=== PATIENT | male | born 1975 | race Two or more races ===

== ENCOUNTER 2025-02-17 08:35 | Day surgery (SDC) | payer MEDICAID, SELFPAY ==
[2025-02-16 15:06] VITALS: BMI 28.8
[2025-02-17] VITALS (12 sets, daily range): BP systolic 111–170; BP diastolic 78–104; PULSE 58–71; RESP 12–18; TEMP 36.3–36.4; O2SAT 94–100; BMI 28.9
[2025-02-17] MEDS: DiphenhydrAMINE INJ 50 MG/ML VIAL 25 MG IV (10:27)
[2025-02-17] MEDS: MIDAZOLAM INJ 1 MG/ML VIAL 2 ML (ASD USE ONLY) 2 MG IV (10:27)
[2025-02-17] MEDS: fentaNYL CIT INJ 50 mCg/ML AMP 2ML (ASD USE ONLY) IV (10:27)
[2025-02-17] MEDS: RINGERS LACTATED 1000 ML 1,000 ML 60 ML IV (10:28)
== END 2025-02-17 11:50 | disposition home or self-care (01) ==
PROVIDERS: PCP Registered Nurse Home Health; Referring Provider Specialist; Visit Provider Specialist
PROC: 0DBE8ZX Excision of Large Intestine, Via Natural or Artificial Opening Endoscopic, Diagnostic (ICD-10-PCS; CPT 45380; principal; 2025-02-17 10:00)
DX: D12.8 Benign neoplasm of rectum (principal); K64.9 Unspecified hemorrhoids
CPT/HCPCS: 45385; 45380; 80053; 81001; 85025; 85610; 85730; J1200; J2250; J3010; J7120

== ENCOUNTER 2025-02-18 13:37 | Inpatient (IN) | payer MEDICAID, SELFPAY ==
[2025-02-18] VITALS (47 sets, daily range): BP systolic 108–157; BP diastolic 73–114; PULSE 61–79; RESP 6–98; TEMP 36.6–36.8; O2SAT 94–100; BMI 28.3
--- NOTE | 2025-02-18 14:25 | PD.EDADULT ---
ED General RME/HPI General Chief complaint: General Adult/Misc Complain Stated complaint: RECTAL BLEEDING S/P COLONOSCOPY Time Seen by Provider: 02/18/25 13:50 Arrival date/time: 02/18/25 13:37 RME / HPI RME / HPI narrative: 49-year-old male patient with significant history of hypertension diabetes mellitus, on Plavix and aspirin however currently on hold for the last 6 days, came in for evaluation regarding rectal bleeding status post colonoscopy. Patient had colonoscopy done yesterday and at 1 AM this morning patient had rectal bleeding, at least going to the restroom 10 times already with blood clots. Patient also complaining of pain to the right upper abdomen. Denies any vomiting denies any dizziness denies any fever denies any other complaints. Patient was sent to us by his surgeon Dr. Katz. Related Data Home Medications ?Medication ?Instructions ?Recorded ?Confirmed amlodipine 10 mg tablet 10 mg PO QDAY 02/17/25 02/17/25 aspirin 81 mg tablet,delayed 81 mg PO QDAY 02/17/25 02/17/25 release aspirin 81 mg tablet,delayed 81 mg PO QDAY 02/17/25 02/17/25 release (Adult Aspirin Regimen) atorvastatin 80 mg tablet 80 mg PO QDAY 02/17/25 02/17/25 clopidogrel 75 mg tablet 75 mg PO QDAY 02/17/25 02/17/25 hydrochlorothiazide 25 mg tablet 25 mg PO QDAY 02/17/25 02/17/25 insulin glargine-yfgn 100 unit/mL 15 unit subcut QDAY 02/17/25 02/17/25 (3 mL) subcutaneous pen (Semglee (insulin glargine-yfgn) Pen) losartan 100 mg tablet 100 mg PO DAILY 02/17/25 02/17/25 montelukast 10 mg tablet 10 mg PO QDAY 02/17/25 02/17/25 nitroglycerin 0.4 mg sublingual 0.4 mg buccal UD PRN chest pain 02/17/25 02/17/25 tablet omeprazole 20 mg capsule,delayed 20 mg PO QDAY 02/17/25 02/17/25 release spironolactone 25 mg tablet 25 mg PO QDAY 02/17/25 02/17/25 Allergies Allergy/AdvReac Type Severity Reaction Status Date / Time insulin lispro Allergy Severe Anaphylaxis Verified 02/18/25 13:40 Penicillins Allergy Mild Rash Verified 02/18/25 13:40 Review of Systems Review of Systems Narrative Review of Systems: Review of system reviewed and within normal limits except mentioned in HPI ED Exam Narrative Physical exam: VITAL SIGNS: Reviewed. GENERAL APPEARANCE: Alert and interactive, follows commands, no acute distress, HEAD AND FACE: Non-traumatic. ENT: PERRL, pink conjunctivitis, eyelid no trauma, Mucous membrane moist. NECK: Supple, nontender, no nuchal rigidity. CHEST: No tenderness, no crepitus, no paradoxical movement, no retractions. LUNGS: Clear, well ventilated, symmetric, no rales, no wheezing, no ronchi, no stridor, good breath sounds bilaterally. HEART: Regular rate, regular rhythm, no murmur, no gallops. ABDOMEN: Soft, positive bowel sounds, nondistended, no guarding, right upper quadrant tenderness, no rebound, no masses, RECTAL: Deferred. GENITAL: Deferred. NEUROLOGICAL: Gross motor function intact sensory function intact, Appropriate for age. MUSCULOSKELETAL: low back nontender, full range of motion. EXTREMITIES: Nontender, full range of motion. SKIN: Color pink, dry, no rash, no lacerations, no abrasions, no contusions. LYMPHATICS: Deferred. Course Quality Measures none Orders Category Date Time Status Patient Condition Routine Admission 02/18/[address] in Observation Status Routine Admission 02/18/25 14:10 Active Ambulate in Blas on 2nd Day Routine Care 02/18/25 14:10 Ordered Bed to Chair in A.M. Daily Care 02/19/25 09:00 Ordered COVID-19 Screening Questionnaire NOW Care 02/18/25 14:24 Active Decision to Admit X1 Care 02/18/25 14:24 Active Incentive Spirometry Treatment .q2h w/a Care 02/18/25 14:10 Active Intake and Output Routine Care 02/18/25 14:10 Ordered Measure Drain Output QSHIFT Care 02/18/25 14:10 Active NPO NOW Care 02/18/25 14:12 Active Obtain Written Consent For: .ONCE Care 02/18/25 14:14 Active Turn, Cough, and Deep Breathe PRN Care 02/18/25 14:10 Active Vital Signs, Non-Routine Q30M Care 02/18/25 14:15 Ordered Diet NPO (NOW) Diet 02/18/25 14:12 Active CBC Routine Lab 02/18/25 14:12 Ordered CMP [Comprehensive Metabolic Panel] DAILY Lab 02/19/25 09:00 Ordered PTT [Partial Thromboplastin Time] Stat Lab 02/18/25 14:13 Ordered Prothrombin Time with INR Stat Lab 02/18/25 14:13 Ordered Ringers Lactated 1000 ml [Lactated Ringers] 1,000 ml Med 02/18/25 14:15 Active IV 125 mls/hr Code Status Routine Oth 02/18/25 14:10 Ordered Oxygen Delivery NOW RT 02/18/25 14:10 Active Vital Signs Vital signs: Vital Signs Temperature 98.1 F 02/18/25 14:18 Pulse Rate 68 02/18/25 14:18 Respiratory Rate 18 02/18/25 14:18 Blood Pressure 124/87 H 02/18/25 14:18 Pulse Oximetry (%) 97 02/18/25 14:18 Oxygen Delivery Method Room Air 02/18/25 14:18 MDM Patient data External records reviewed:: None Clinical information provided by:: patient Social determinants that could affect healthcare access:: none Patient has the following chronic illnesses:: Hypertension diabetes mellitus How is presenting disease/condition affected by chronic disease/condition?: exacerbated by Evaluation data The following diagnostics were reviewed and interpreted by me:: lab results, radiology exam(s) and EKG tracing(s) Lab and/or radiology exams considered but not ordered:: Then Interpretation Summary: See results MDM Medications Medications considered but not ordered:: None Medication administrations:: Medication Administration History Lactated Ringer's (Lactated Ringers) 1,000 mls @ 125 mls/hr IV .Q8H JAMIE Stop: 03/20/25 14:14 Last Admin: 02/18/25 14:53 Dose: 125 mls/hr Documented By: IV fluids Consultations Consultation(s) initiated? (list below): Yes Consultation #1 (Physician, Specialty, Details): Dr. Katz, patient surgeon thank you Diagnosis Differential Diagnosis ED Complaint MDM: Rectal bleeding status post colonoscopy Most likely diagnosis given after review of the tests above:: Rectal bleeding status post colonoscopy Admission Indicated Admission indicated?: not indicated Explain why admission is indicated or not indicated:: Stable Admission Request Was there a request for admission?: No Disposition Plan Disposition Plan: Admit Medical Decision Making MDM Narrative MDM Narrative: 49-year-old male patient with significant history of hypertension diabetes mellitus, on Plavix and aspirin however currently on hold for the last 6 days, came in for evaluation regarding rectal bleeding status post colonoscopy. Patient had colonoscopy done yesterday and at 1 AM this morning patient had rectal bleeding, at least going to the restroom 10 times already with blood clots. Patient also complaining of pain to the right upper abdomen. Denies any vomiting denies any dizziness denies any fever denies any other complaints. Patient was sent to us by his surgeon Dr. Katz. Patient CBC showed hemoglobin of 12.4 hematocrit of 35 PT PTT normal Spoke with Dr. Katz, general surgeon on-call, who will do colonoscopy today. Patient is to be admitted for further management. Differential Diagnosis Differential Diagnosis: Rectal bleeding status post colonoscopy Lab Data 02/18/25 14:56 Discharge Plan Problem List Clinical Impression: Rectal bleeding, Status post colonoscopy
[2025-02-18] MEDS: RINGERS LACTATED 1000 ML 1,000 ML 125 ML IV (14:53)
[2025-02-18 15:16] LABS: Basophils % (Auto) 0 % (0-2.5); Eosinophils # (Auto) 0.1 Thou/mm3 (0.0-0.5); Eosinophils % (Auto) 1 % (0-10); Hemoglobin 12.4 g/dL (13.5-16.0); Immature Granulocytes % (Auto) 0 % (0-0); Immature Granulocytes Auto 0.02 Thou/mm3 (0.00-0.00); Lymphocytes # (Auto) 2.1 Thou/mm3 (1.0-4.8); Lymphocytes % (Auto) 26 % (10-50); Mean Corpuscular HGB Conc 35.4 g/dl (31.0-37.0); Mean Corpuscular Hemoglobin 29.7 pg (25.0-35.0); Mean Corpuscular Volume 84 fL (80-100); Monocytes # (Auto) 0.4 Thou/mm3 (0.0-0.8); Monocytes % (Auto) 5 % (0-12); Neutrophils # (Auto) 5.4 Thou/mm3 (1.8-7.7); Neutrophils % (Auto) 67 % (37-80); Nucleated Red Blood Cell % 0 /100 WBC (0); Platelet Count 211 Thou/mm3 (140-440); RDW Standard Deviation 37.3 fL (35.1-43.9); Red Blood Count 4.17 Miln/mm3 (4.50-5.90); White Blood Count 8.1 Thou/mm3 (3.8-10.6)
--- NOTE | 2025-02-18 15:16 | PC.NURSE ---
pt came in with for what they claim was rectal bleeding that has been occuring since 1am.
--- NOTE | 2025-02-18 15:18 | PC.NURSE ---
pt ambulated to restroom. minimal assist
--- NOTE | 2025-02-18 15:22 | PC.NURSE ---
gave report to liat from endoscopy
[2025-02-18 15:31] LABS: INR 1.1 (0.9-1.3); Partial Thromboplastin Time 26.2 Seconds (22.0-36.0); Prothrombin Time 11.8 Seconds (9.0-12.2)
--- NOTE | 2025-02-18 17:46 | PC.NURSE ---
STILL IN ENDOSCOPY
[2025-02-18 19:54] LABS: Basophils % (Auto) 0 % (0-2.5); Eosinophils # (Auto) 0.1 Thou/mm3 (0.0-0.5); Eosinophils % (Auto) 1 % (0-10); Hematocrit 33.2 % (41.0-53.0); Hemoglobin 11.8 g/dL (13.5-16.0); Immature Granulocytes % (Auto) 0 % (0-0); Immature Granulocytes Auto 0.01 Thou/mm3 (0.00-0.00); Lymphocytes # (Auto) 2.6 Thou/mm3 (1.0-4.8); Lymphocytes % (Auto) 36 % (10-50); Mean Corpuscular HGB Conc 35.5 g/dl (31.0-37.0); Mean Corpuscular Hemoglobin 29.8 pg (25.0-35.0); Mean Corpuscular Volume 84 fL (80-100); Monocytes # (Auto) 0.4 Thou/mm3 (0.0-0.8); Monocytes % (Auto) 5 % (0-12); Neutrophils # (Auto) 4.2 Thou/mm3 (1.8-7.7); Neutrophils % (Auto) 57 % (37-80); Nucleated Red Blood Cell % 0 /100 WBC (0); Platelet Count 206 Thou/mm3 (140-440); RDW Standard Deviation 37.9 fL (35.1-43.9); Red Blood Count 3.96 Miln/mm3 (4.50-5.90); White Blood Count 7.3 Thou/mm3 (3.8-10.6)
--- NOTE | 2025-02-18 20:24 | ESOP_ITS ---
Date of Procedure 02/18/25 Pre Op Diagnosis Rectal bleeding post polypectomy from the proximal rectum. Post Op Diagnosis Same. Procedure Colonoscopy with control of rectal bleeding with endoclips Injection of epinephrine Use of Endo clot with the powder Use of argon beam wagon driver salesperson Using gold probe wagon driver salesperson Intraoperative consultation with Dr. Carias. Findings There is a polypectomy site in the mid to proximal rectum. There was a about a centimeter size ulcer and then there was pumping bleeding from this location and it was an active bleeder. After intervention with all the above-mentioned modality we able to control the bleeding to a point. Intraoperative consultation was obtained from Dr. Carias who kindly came and assisted in the management of the active bleeding. At the end the bleeding seem to be stopping or controlled and decision is made to transfer the patient to ICU there was a consideration for getting a interventional radiologist to embolize the offending vessel that may be done if the patient is transferred tonight if we can act find a place to avoid it absent except him or in the morning we can request IR to embolize the vessel if there is an ongoing bleeding overnight. Condition of the patient has been stable.. Procedure Description The patient was brought to the endoscopy suite on the operating room. He is positioned in the left lateral position and IV sedation was used with Versed fentanyl and Benadryl. And it was titrated as per needed. The endoscope was inserted into the rectum and examination was carried out to the proximal sigmoid colon and ensure that there was no bleeding coming from the proximal colon. The site was then isolated and localized where the active bleeding was. After identifying the site then I used the Endo Clip x 3 to apply it to the bleeding site however it did not control the bleeding. After that I employed injection of epinephrine all the way around and that seemed to stop the bleeding but then it recurred. After that he applied some and a clot powder to see if we can use that to stop the bleeding. That did not work. After that we will applied few m ore endoclips however it seemed not to work so therefore I decided to consult Senior flotation operator Dr. Carias. Dr. Carias kindly came in and examined the patient and proceeded to evaluate and manage the bleeding. He used the gold probe as well as argon beam and putting in a few more clips. He also applied more epinephrine. After period of time it seemed to slow down the bleeding. This is to the point that there was no bleeding on observation for a period of about 5 minutes. The case was discussed in detail and it was felt that it may have stopped now but it can recur and he may require interventional radiologist to embolize the bleeding point. Decision was made to admit the patient to ICU order some blood transfusion and possibly get some platelets considering that he was on Plavix about 7 days ago. He was also on aspirin he is not taking aspirin and Plavix for about 6 days considering the qualitative problem with the platelet function in this patient I have ordered platelet transfusion. I was informed that the blood bank will look for platelets from [place]. In the meantime he will get fresh frozen plasma as well as the 2 units of packed cells. I have discussed the case with the ICU attending and he will be transferred to the ICU and he will get serial CBC to check if he is stable. If the patient's H&H remains stable over period of time he may or may not be taken for interventional radiology's embolization procedure. Nonetheless he will be observed overnight. I want to thank Dr. Carias for his kind intervention and management of this patient. Anesthesia IV sedation Drains None. Implants Multiple endoclips Pathology / specimen None Estimated Blood Loss 50 Condition Stable Disposition ICU Surgeon Vamshi Katz MD Surgical Staff Operation Date: 02/18/25 16:00 <No data on this case meets the specified criteria> Endoscopist Dr. Vamshi Katz MD Endoscopy business transformation consultant Dr. Aretha KOHLI
--- NOTE | 2025-02-18 20:53 | PD.SURHP ---
HPI Date of Admission 02/18/25 14:10 Chief Complaint Chief Complaint: Rectal bleeding status post colonoscopy and polypectomy. HPI This 49-year-old gentleman had colonoscopy and polypectomy with hot snare. That was done about 24 hours before the admission. He has a history of coronary intervention and he has been on Plavix and aspirin that upon his hot roller advised stopped about 5 days prior to the procedure. He did well with the polypectomy there was no bleeding for several hours after that. Subsequently he developed some rectal bleeding he was seen in the emergency room and then he was admitted to the hospital for further management. He is brought in for colonoscopy and control of the bleeding. The risk benefits and alternatives were discussed with the patient and informed consent is obtained for colonoscopy and control of bleeding. Past Medical History Past Medical History NEUROLOGIC: Positive Neurological Disorders, Cerebrovascular Accident (x2) and Transient Ischemic Attacks (TIA) (x3); Negative Seizures CARDIAC: Positive Cardiac Disorders, Myocardial Infarction (2021 & 2020), Hypercholesterolemia and Hypertension; Negative Congestive Heart Failure RESPIRATORY: Positive Sleep Apnea (uses Cpap); Negative Chronic Obstructive Pulmonary Disease (COPD) GASTROINTESTINAL: Negative Gastrointestinal Disorders GENITOURINARY: Negative Genitourinary Disorders or Renal Disease MUSCULOSKELETAL: Negative Musculoskeletal Disorders ENDOCRINE: Positive Endocrine Disorders and Diabetes Mellitus Type 2; Negative Diabetes Mellitus Type 1 HEMATOLOGIC: Negative Blood Disorders OTHER HISTORY: Negative Autoimmune Disease, Blood Transfusions, Blood Transfusion Reaction, Anesthesia Reactions or Cancer Social History SMOKING STATUS: Never smoker Meds Home Medications and Allergies Home Medications ?Medication ?Instructions ?Recorded ?Confirmed ?Type amlodipine 10 mg tablet 10 mg PO QDAY 02/17/25 02/17/25 History aspirin 81 mg tablet,delayed 81 mg PO QDAY 02/17/25 02/17/25 History release aspirin 81 mg tablet,delayed 81 mg PO QDAY 02/17/25 02/17/25 History release (Adult Aspirin Regimen) atorvastatin 80 mg tablet 80 mg PO QDAY 02/17/25 02/17/25 History clopidogrel 75 mg tablet 75 mg PO QDAY 02/17/25 02/17/25 History hydrochlorothiazide 25 mg tablet 25 mg PO QDAY 02/17/25 02/17/25 History insulin glargine-yfgn 100 unit/mL 15 unit subcut QDAY 02/17/25 02/17/25 History (3 mL) subcutaneous pen (Semglee (insulin glargine-yfgn) Pen) losartan 100 mg tablet 100 mg PO DAILY 02/17/25 02/17/25 History montelukast 10 mg tablet 10 mg PO QDAY 02/17/25 02/17/25 History nitroglycerin 0.4 mg sublingual 0.4 mg buccal UD PRN chest pain 02/17/25 02/17/25 History tablet omeprazole 20 mg capsule,delayed 20 mg PO QDAY 02/17/25 02/17/25 History release spironolactone 25 mg tablet 25 mg PO QDAY 02/17/25 02/17/25 History Allergies Allergy/AdvReac Type Severity Reaction Status Date / Time insulin lispro Allergy Severe Anaphylaxis Verified 02/18/25 13:40 Penicillins Allergy Mild Rash Verified 02/18/25 13:40 Exam Vital Signs Temp Pulse Resp BP Pulse Ox O2 Del Method O2 Flow Rate 97.8 F 67 20 132/86 H 100 Room Air 2 02/18/25 20:21 02/18/25 20:21 02/18/25 20:21 02/18/25 20:21 02/18/25 20:21 02/18/25 15:01 02/18/25 20:21 Constitutional Constitutional: no acute distress Routine HEENT Exam Head: Present normocephalic Eye: Present EOMI and PERRL ENT: Present mucous membranes moist Routine Neck Exam Neck: Present supple and trachea midline Routine Chest/Breast/Axilla Exam Chest wall: Absent tenderness or mass Routine Respiratory Exam Respiratory: Present chest non-tender, lungs clear, normal breath sounds and no resp distress; Absent respiratory distress Routine Cardiovascular Exam Cardiovascular: Present RRR Routine Abdominal Exam Abdominal: Present soft and normoactive bowel sounds Routine Rectal Exam Comments: Rectal examination shows that he has bright red bleeding and few blood clots. There is no tenderness. It is expected that he is having bleeding from the polypectomy site. Routine Extremities Exam Extremities: Present full ROM Routine Skin Exam Skin: Present intact, dry and warm Routine Neurological Exam Neurological: Present alert, oriented X3 and CN II-XII intact Routine Psychiatric Exam Psychiatric: Present normal affect and normal thought process Results Results: Laboratory Laboratory results: results reviewed Assessment & Plan Problem List (1) Rectal bleeding: Status: Acute (2) Status post colonoscopy with polypectomy: Status: Acute (3) Status post colonoscopy: Status: Acute Plan Admit the patient perform colonoscopy examination the site for polypectomy and control of the bleeding. Patient is informed that if you are not able to control the bleeding that he may require transfer to higher level of care. An informed consent is obtained. Quality Measures Quality Measures none
--- NOTE | 2025-02-18 21:38 | PD.RESCONSUL ---
HPI Data of Consult Consult date: 02/18/25 Requesting Physician: Vamshi Katz MD Admitting Provider: Vamshi Katz MD Attending Provider: Vamshi Katz MD Primary Care Provider: Vladimir Marcus MD Consult Narrative Reason for consult: bleeding History of present illness: Patient is a 49 year old male with PMH of DM2, HTN, CAD who was admitted on 02/18 for colonoscopy. Patient had an outpatient colonoscopy yesterday with polypectomy. His woods warden told patient to hold aspirin/plavix 6 days prior. After the proceudre, patient continued to have multiple episodes of blood per rectum, so returned to the ER. Patient underwent repeat colonoscopy today with Dr. Katz and Dr. Carias to control the bleeding with endoclips and local epinephrine (see operative note). 2 units of PRBC and 2FFP were ordered, with serial CBC and plans for possible IR embolization in the morning. Patient is admitted to the ICU for observation for GI bleed. Upon post-op evaluation, patient vitals were stable. He is sleepy from the sedation so history supplemented by chart review. He denies any current abdominal pain. Hb at 11.8. PMH: DM2, HTN, CAD PSH: varicose vein repair SH: denies alcohol, illicit drug use. Former smoker, quit in 2020. cc:: cc: Vamshi Katz MD Review of Systems Review of Systems Systems Reviewed: All systems reviewed, normal except as documented Exam Vital Signs Temp Pulse Resp BP Pulse Ox O2 Del Method O2 Flow Rate 97.8 F 72 14 126/86 H 95 Room Air 2 02/18/25 20:21 02/18/25 21:10 02/18/25 21:10 02/18/25 21:10 02/18/25 21:10 02/18/25 15:01 02/18/25 20:21 Narrative Exam Constitutional: Mohawk-speaking. AAO x 3. HEENT: NCAT. Vision grossly intact. Mucous membranes moist. Respiratory: CTAB bilaterally. Cardiac: RRR. Abdomen: Soft, non-distended, non-tender. MSK: No B/L LE edema. Skin: Warm, dry, intact. Results Labs 02/18/25 19:37 Labs: Short CBC 02/18/25 02/18/25 Range/Units 14:56 19:37 WBC 8.1 7.3 (3.8-10.6) Thou/mm3 Hgb 12.4 L 11.8 L (13.5-16.0) g/dL Hct 35.0 L 33.2 L (41.0-53.0) % Plt Count 211 206 (140-440) Thou/mm3 Quality Measures Quality Measures none Medications Home Medications and Allergies Home Medications ?Medication ?Instructions ?Recorded ?Confirmed ?Type amlodipine 10 mg tablet 10 mg PO QDAY 02/17/25 02/17/25 History aspirin 81 mg tablet,delayed 81 mg PO QDAY 02/17/25 02/17/25 History release aspirin 81 mg tablet,delayed 81 mg PO QDAY 02/17/25 02/17/25 History release (Adult Aspirin Regimen) atorvastatin 80 mg tablet 80 mg PO QDAY 02/17/25 02/17/25 History clopidogrel 75 mg tablet 75 mg PO QDAY 02/17/25 02/17/25 History hydrochlorothiazide 25 mg tablet 25 mg PO QDAY 02/17/25 02/17/25 History insulin glargine-yfgn 100 unit/mL 15 unit subcut QDAY 02/17/25 02/17/25 History (3 mL) subcutaneous pen (Semglee (insulin glargine-yfgn) Pen) losartan 100 mg tablet 100 mg PO DAILY 02/17/25 02/17/25 History montelukast 10 mg tablet 10 mg PO QDAY 02/17/25 02/17/25 History nitroglycerin 0.4 mg sublingual 0.4 mg buccal UD PRN chest pain 02/17/25 02/17/25 History tablet omeprazole 20 mg capsule,delayed 20 mg PO QDAY 02/17/25 02/17/25 History release spironolactone 25 mg tablet 25 mg PO QDAY 02/17/25 02/17/25 History Allergies Allergy/AdvReac Type Severity Reaction Status Date / Time insulin lispro Allergy Severe Anaphylaxis Verified 02/18/25 13:40 Penicillins Allergy Mild Rash Verified 02/18/25 13:40 Visit Medications Lactated Ringer's (Lactated Ringers) 1,000 mls @ 125 mls/hr IV .Q8H JAMIE Stop: 03/20/25 14:14 Last Admin: 02/18/25 14:53 Dose: 125 mls/hr Discontinued Medications Acetaminophen (Acetaminophen 325 Mg Tablet) 650 mg PO X1 ONE Stop: 02/18/25 19:04 Diphenhydramine HCl (Diphenhydramine Inj 50 Mg/Ml Vial) 25 mg IV [id number] PRN PRN Reason: MODERATE SEDATION Stop: 02/18/25 19:21 Diphenhydramine HCl (Diphenhydramine 25 Mg Capsule) 25 mg PO X1 ONE Stop: 02/18/25 19:04 Fentanyl Citrate (Fentanyl Cit Inj 50 Mcg/Ml Amp 2ml) 50 mcg IV Q2M PRN PRN Reason: MODERATE SEDATION Stop: 02/18/25 19:21 Furosemide (Furosemide Inj 10 Mg/Ml Vial 2 Ml) 40 mg IVP X1 ONE Stop: 02/18/25 19:04 Midazolam HCl (Midazolam Inj 1 Mg/Ml Vial 2 Ml) 2 mg IV Q2M PRN PRN Reason: Moderate Sedation Stop: 02/18/25 19:21 Assessment & Plan Plan Patient is a 49 year old male with PMH of DM2, HTN, CAD who presents to the ER for bleeding post-polypectomy and underwent bleeding repair 02/18. DIRECTOR SPEECH No acute problems CARDIOVASCULAR #History of CAD - Hold home aspirin, plavix in the setting of GIB #History of HTN Normotensive; may restart home BP meds as needed RESPIRATORY No acute problems RENAL No acute problems GI Acute GI Bleed - s/p polypectomy with bleeding repair 02/[address] Katz and Dr. Carias - serial CBC - 2 units FFP and 2 units PRBC ordered by surgeon - may undergo IR embolization in AM ENDO #History of DM2 Blood sugar checks Q6H while NPO Holding home meds, may consider starting ISS HEME #Acute blood loss anemia secondary to acute GIB - see GI section above - DVT prophylaxis: SCD ID No acute problems Health Maintenance Disposition: Admit to ICU for observation GIB s/p polypectomy with endoclipping Diet and fluids: NPO DVT prophylaxis: SCD GI prophylaxis: none CODE STATUS: FULL I have reviewed and discussed the patient's care with my attending, Dr. Kaitlynn Fonseca MD PGY-3 Attending Provider Attestation/Addendum I have examined the patient, reviewed labs and imaging findings, discussed the case with the resident(s), and reviewed entered orders. I agree with the plan of care as outlined in this note, with these additional summaries/recommendations: Patient is a 49-year-old male with a medical history of primary hypertension, diabetes mellitus type 2, hyperlipidemia, and coronary artery disease on dual antiplatelet therapy who presents to [facility] emergency department on 02/18/2025 with chief complaint of rectal bleeding after outpatient colonoscopy with polypectomy. Patient seen at bedside. He reports he underwent colonoscopy with polypectomy removal yesterday. Path report negative for malignancy. Patient continued to have rectal bleeding at home and returned to the emergency room. Patient then underwent repeat colonoscopy today with general surgery and gastroenterology to control the bleeding with endoclips and local epinephrine. General surgery requested ICU admission given patient is high risk of rebleeding. Hemoglobin currently 11.8. We will continue to hold home Plavix and aspirin. Continue to monitor H&H. Patient may require IR embolization in AM. We will resume home antihypertensives as tolerated. Patient currently n.p.o. and we will defer starting sliding scale for diabetes mellitus type 2 for now. Repeat hematology and chemistry panel in AM. Dr. Kaitlynn MD
[2025-02-19] VITALS (74 sets, daily range): BP systolic 109–169; BP diastolic 72–123; PULSE 55–90; RESP 0–97; TEMP 36.1–37.1; O2SAT 92–100
--- NOTE | 2025-02-19 04:45 | PC.NURSE ---
DR. STEWART CALLED IN FOR UPDATE. MADE MD AWARE THAT PT JUST HAD LARGE BLOOD BM WITH CLOTS, EARLY IN SHIFT HAD ONE SMALL AND ONE MEDIUM PER REPORT. NO ABD PAIN. VSS. LAB TO COLLECT MORNING LABS SOON. PREVIOUS HBG AT APPROX 1999 AT 11.8. NO NEW ORDERS
[2025-02-19 05:47] LABS: INR 1.1 (0.9-1.3)
--- NOTE | 2025-02-19 06:16 | PC.NURSE ---
OK TO DRAW MORNING LABS AT [address] STEWART
--- NOTE | 2025-02-19 07:41 | PC.NURSE ---
Spoke with Cecilia Tripathi RN regarding order for IR angio. IR MD does not perform embolizations, and for any questions please contact Dr. Nava,.
[2025-02-19] MEDS: RINGERS LACTATED 1000 ML 1,000 ML 125 ML IV ×2 (08:06→17:53)
--- NOTE | 2025-02-19 08:10 | PC.CC ---
Addendum entered by Telma Castro RN 02/19/25 18:39: Karla made aware of NUC med report Addendum entered by Telma Castro RN 02/19/25 17:57: Spoke to Roxana she states they recieved CT scan and this RN informed her the nuclear med test was done and waiting on results, per Dr. Katz the bleed is located on middle of rectum on right side Addendum entered by Telma Castro RN 02/19/25 17:55: Summer from [facility] called back and states they do not have IR intercell connector placer Addendum entered by Telma Castro RN 02/19/25 16:58: Called [facility] to get updated auth for [facility] at [phone], voicemail left will wait for call back Addendum entered by Telma Castro RN 02/19/25 16:51: [facility] called at 1559 stating they could accept the patient but needs auth Addendum entered by Telma Castro RN 02/19/25 16:51: CT faxed to [facility] Addendum entered by Telma Castro RN 02/19/25 14:46: Spoke to Summer at [facility] chart faxed, will wait for call back Addendum entered by Telma Castro RN 02/19/25 13:17: Cpoke to Migdalia at [facility], chart faxed will wait for call back Addendum entered by Telma Castro RN 02/19/25 13:08: Spoke to Roxana at [facility] who states her IR will not even consult on patient until ct scan shows where the bleed is and if it shows no bleed then the patient needs Nuclear RBC test before her IR doctor would consider consulting patient, she suggested trying other places. Addendum entered by Telma Castro RN 02/19/25 12:47: Spoke to Dr. Katz who stated patient is still bleeding, and needs transfer, Dr. Katz said he will order ct abdomen, attempted to get a hold of Roxana at [facility] for update, she states [facility] will call back Addendum entered by Telma Castro RN 02/19/25 11:02: Roxana from [facility] called back and statd her doctor did peer to peer with Dr. Katz and decided the patient needed IR but the patient does not qualify for transfer at this time, Roxana states if patient does start bleeding again that the patient will need a ct of the abdomen and nuclear rbc scan to determine where the bleeding is coming from prior to transfer. Attempted to Call Dr. Katz VM left will wait for call back. Addendum entered by Telma Castro RN 02/19/25 10:15: Roxana called to get updated clinicals Addendum entered by Telma Castro RN 02/19/25 09:37: Spoke to Sharita at [facility] and gave her all the information, chart faxed will wait for call back Addendum entered by Telma Castro RN 02/19/25 09:30: Spoke to Mansi at [facility], she gave auth number [id number], clinicals faxed to [phone], she requested that patient be transferred to [facility] Addendum entered by Telma Castro RN 02/19/25 09:12: Spoke to Saundra at [facility] for finacncial authorization for transfer, she states to call [facility] at [phone], ref # for this call is [id number] Addendum entered by Telma Castro RN 02/19/25 08:26: Spoke to Ambar at [facility] who states they are at capacity and they do not transfer for IR Addendum entered by Telma Castro RN 02/19/25 08:13: Left voicemail for [facility] transfer packet chart faxed Original Note: Dr. Baxter called and stated that patient needs transfer FOR IR for embolization for GI bleed
[2025-02-19] MEDS: INSULIN GLARGINE (Lantus) 5 UNIT/0.05 ML (PER 5 UNITS) 8 UNIT SC (08:17)
[2025-02-19 08:30] LABS: Basophils % (Auto) 0 % (0-2.5); Eosinophils # (Auto) 0.1 Thou/mm3 (0.0-0.5); Eosinophils % (Auto) 1 % (0-10); Hematocrit 34.1 % (41.0-53.0); Hemoglobin 11.9 g/dL (13.5-16.0); Immature Granulocytes % (Auto) 0 % (0-0); Immature Granulocytes Auto 0.02 Thou/mm3 (0.00-0.00); Lymphocytes # (Auto) 1.8 Thou/mm3 (1.0-4.8); Lymphocytes % (Auto) 22 % (10-50); Mean Corpuscular HGB Conc 34.9 g/dl (31.0-37.0); Mean Corpuscular Hemoglobin 30.4 pg (25.0-35.0); Mean Corpuscular Volume 87 fL (80-100); Monocytes # (Auto) 0.4 Thou/mm3 (0.0-0.8); Monocytes % (Auto) 5 % (0-12); Neutrophils # (Auto) 5.6 Thou/mm3 (1.8-7.7); Neutrophils % (Auto) 71 % (37-80); Nucleated Red Blood Cell % 0 /100 WBC (0); Platelet Count 175 Thou/mm3 (140-440); RDW Standard Deviation 40.8 fL (35.1-43.9); Red Blood Count 3.92 Miln/mm3 (4.50-5.90); White Blood Count 7.9 Thou/mm3 (3.8-10.6)
[2025-02-19 08:46] LABS: Alanine Aminotransferase 12 U/L (10-49); Albumin, Serum 3.7 gm/dL (3.5-5.0); Albumin/Globulin Ratio 1.6 (1.2-2.2); Alkaline Phosphatase 72 U/L (46-116); Anion Gap 4 (7-16); Aspartate Amino Transferase 13 U/L (0-34); BUN/Creatinine Ratio 16 Ratio (12-20); Bilirubin,Total 2.8 mg/dL (0.3-1.2); Blood Urea Nitrogen 13 mg/dL (9-23); Calcium 8.8 mg/dL (8.3-10.6); Carbon Dioxide 33.8 mMol/L (20.0-31.0); Chloride 102 mMol/L (98-107); Creatinine (Component) 0.8 mg/dL (0.6-1.3); Estimated Creatinine Clearance 125.9 mL/min (>60); Globulin 2.3 gm/dL (2.3-3.5); Glucose 265 mg/dL (74-106); Osmolality,Calculated 288 (275-295); Sodium 140 mMol/L (136-145); eGFR > 60 See Note
[2025-02-19 09:02] LABS: Glucose Estimated Average 232 mg/dL (80-131); Hemoglobin A1C 9.7 % Hgb (4.8-6.0)
--- NOTE | 2025-02-19 09:07 | PC.NURSE ---
called for update at this time, dr. carpio said to give platelet transfusion.
--- NOTE | 2025-02-19 10:10 | PC.NURSE ---
deandre from [facility] called to get medical information for the patient for transfer.
--- NOTE | 2025-02-19 11:25 | PD.RESPRO ---
Documentation for date of: 02/19/25 Subjective Subjective Interval history: General surgery patient who was last night placed in ICU for close monitoring in the setting of GI bleed, intensive care consulted No overnight events, patient has been hypertensive in the 160s, nontachycardic, has received 2 units of blood so far, still having blood clots per rectum Exam Vital Signs Temp Pulse Resp BP Pulse Ox O2 Del Method O2 Flow Rate 97.0 F 67 9 L 160/103 H 99 Room Air 2 02/19/25 10:38 02/19/25 11:00 02/19/25 11:00 02/19/25 11:00 02/19/25 11:00 02/18/25 15:01 02/19/25 09:18 Narrative Exam GENERAL: Awake, alert and oriented. No acute distress. HEENT: Normocephalic, atraumatic and nontender.? Pupils are equal and reactive to light and accommodation.? Oral mucosa moist. NECK: Supple without adenopathy. Traquea midline. Nontender, carotid pulse 2+ bilaterally without bruits, no JVD.? CHEST: Heart rate and rythm normal, no murmurs, gallops auscultated. S1 & 2 normal insensity. Nontender on palpation, no deformity and no crepitus. LUNGS: Lung sounds are clear.? No wheezing, rales or ronchi.? No intercostal subcostal retraction. Room air ABDOMEN: Soft,symmetric ,mild tenderness to palpation lower quadrants no guarding or rebound tenderness. No abnormal masses palpated.? No pulsatile masses or bruits.? Bowel sounds are normoactive in all 4 quadrants. EXTREMITIES: Nontender.? No pitting edema.? No cyanosis.? Patient is able to move all 4 extremities. SKIN: No rashes noted. NEURO:? Cranial nerves intact.? There is no focalization.? GCS is 15. Objective Labs 02/19/25 08:15 02/19/25 08:15 Labs: Laboratory Results - last 24 hr 02/18/25 02/18/25 02/19/25 14:56 19:37 05:00 WBC 8.1 7.3 RBC 4.17 L 3.96 L Hgb 12.4 L 11.8 L Hct 35.0 L 33.2 L MCV 84 84 MCH 29.7 29.8 MCHC 35.4 35.5 RDW Std Deviation 37.3 37.9 Plt Count 211 206 Neut % (Auto) 67 57 Lymph % (Auto) 26 36 [place] % (Auto) 5 5 Eos % (Auto) 1 1 Baso % (Auto) 0 0 Neut # (Auto) 5.4 4.2 Lymph # (Auto) 2.1 2.6 [place] # (Auto) 0.4 0.4 Eos # (Auto) 0.1 0.1 Baso # (Auto) 0.0 0.0 Immature Gran # (Auto) 0.02 H 0.01 H Absolute Nucleated RBC 0.00 0.00 Immature Gran % 0 0 Nucleated RBC % 0 0 PT 11.8 12.0 INR 1.1 1.1 APTT 26.2 Sodium Potassium Chloride Carbon Dioxide Anion Gap BUN Creatinine Estim Creat Clear Calc eGFR BUN/Creatinine Ratio Glucose Estimated Ave Glu mg/dL Hemoglobin A1c Calculated Osmolality Calcium Corrected Calcium Total Bilirubin AST ALT Alkaline Phosphatase Total Protein Albumin Globulin Albumin/Globulin Ratio Blood Type AB Negative Antibody Screen NEGATIVE Crossmatch See Detail Blood Bank Wristband ID Yes Blood Bank Comment FFP Ready 02/19/25 08:15 WBC 7.9 RBC 3.92 L Hgb 11.9 L Hct 34.1 L MCV 87 MCH 30.4 MCHC 34.9 RDW Std Deviation 40.8 Plt Count 175 D Neut % (Auto) 71 Lymph % (Auto) 22 [place] % (Auto) 5 Eos % (Auto) 1 Baso % (Auto) 0 Neut # (Auto) 5.6 Lymph # (Auto) 1.8 [place] # (Auto) 0.4 Eos # (Auto) 0.1 Baso # (Auto) 0.0 Immature Gran # (Auto) 0.02 H Absolute Nucleated RBC 0.00 Immature Gran % 0 Nucleated RBC % 0 PT INR APTT Sodium 140 Potassium 4.0 Chloride 102 Carbon Dioxide 33.8 H Anion Gap 4 L BUN 13 Creatinine 0.8 Estim Creat Clear Calc 125.9 eGFR > 60 BUN/Creatinine Ratio [address] Glu mg/dL 232 H Hemoglobin A1c 9.7 H Calculated Osmolality 288 Calcium 8.8 Corrected Calcium 9.0 Total Bilirubin 2.8 H AST 13 ALT 12 Alkaline Phosphatase 72 Total Protein 6.0 Albumin 3.7 Globulin 2.3 Albumin/Globulin Ratio 1.6 Blood Type Antibody Screen Crossmatch Blood Bank Wristband ID Blood Bank Comment Quality Measures Quality Measures none Assessment & Plan Assessment Current Active Medications: Generic Name Dose Route Start Last Admin Trade Name Freq PRN Reason Stop Dose Admin Dextrose 25 ml 02/19/25 06:05 Dextrose 50%-Water Inj 50 Ml Syringe IV 03/21/25 06:04 Q15MIN PRN BG 50-70 responsive npo pt Dextrose 50 ml 02/19/25 06:05 Dextrose 50%-Water Inj 50 Ml Syringe IV 03/21/25 06:04 Q15MIN PRN BG <50 OR BG <70 & pt unresponsive Glucagon 1 mg 02/19/25 06:05 Glucagon Inj 1 Mg Vial IM Q15MIN PRN BG <70, and no IV access Lactated Ringer's 1,000 mls @ 125 mls/hr 02/18/25 14:15 02/19/25 08:06 Lactated Ringers IV 03/20/25 14:14 125 mls/hr .Q8H JAMIE Administration Insulin Glargine 8 unit 02/19/25 09:00 02/19/25 08:17 Insulin Glargine (Lantus) 5 Unit/0.05 Ml (Per 5 Units) SC 03/21/25 08:59 8 unit QDAY JAMIE Administration Plan General surgery patient who was last night placed in ICU for close monitoring in the setting of GI bleed, intensive care consulted No overnight events, patient has been hypertensive in the 160s, nontachycardic, has received 2 units of blood so far, still having blood clots per rectum #Acute blood loss anemia due to #GI bleed -Patient developed bleeding after colonoscopy with polypecotmy yesterday -Patient still bleeding after repeat colonoscopy with endoclips and local epinephrine -Patient's vitals have remained stable, non tachycardic, not hypotensive -s/p 2 units of PRBCs, hemoglobin stable at 11.9 -Primary team Dr Katz spoke with [facility] for IR embolization -Patient will be transfered for IR embolization following CT abdomen and nuclear GI bleed scan -Patient doesn't require ICU level of care at this point, safe and stable for downgrade to telemetry Patient's care discussed with attending physician, Dr Adi Perez MD PGY3 Attending Provider Attestation/Addendum pt seen and d/w resident team. admitted to the ICU for close observation after colonoscopy with polyp removal. has had some rectal bleeding however has been hemodynamically stable with a stable h/h thus far. ok for downgrade to tele d/w icu team labs, imaging records reviewed ~25min for eval, review, intervention , discussion
--- NOTE | 2025-02-19 11:37 | PC.SS ---
Initial assessment: this is 49 year old male admitted to ICU for post colonoscopy bleeding. Patient resides at home with Yaa and daughter Rivka. Confirmed home address on facesheet. Patient able to complete ADL's. Patient uses CPAP machine at night, no other use of DME. Patient's PCP is Dr. Vladimir Marcus. Discharge plan is to return home following higher level of care transfer. Emergency contact for the patient will be daughterRivka. No current needs identified. D/c plan: Home Next of kin: daughter: Rivka [phone]
--- NOTE | 2025-02-19 12:15 | XR_ITS ---
Examination: Nuclear medicine gastrointestinal bleeding study Exam date and time: February 19, 2025 1714 hrs. Indications: Rectal bleeding status post colonoscopy, diabetes hypertension history, patient on Plavix and aspirin Technique And Findings: Intravenous administration 23.0 mCi technetium pertechnetate UltraTag labeled red blood cells Serial imaging obtained 2 seconds per frame, 3-D images Normal heart and vascular activity No abnormal isotope accumulation noted Fusion with the studies there are more delayed images I will contact nuclear medicine to determine if more images have been obtained Impression: Negative study. No gastrointestinal bleeding source noted
--- NOTE | 2025-02-19 14:17 | XR_ITS ---
Examination: CT abdomen with intravenous contrast CT pelvis with intravenous contrast 2-D coronal reconstructions 2-D sagittal reconstructions Date and time of exam:February 19, 2025 at 1418 hours INDICATIONS: Rectal bleeding postcolonoscopy 2 days ago. CTDI: vol (mGy) 8.68 DLP: (mGycm) 587 Technique: Multiple axial sections of the abdomen and pelvis have been obtained. 64 slice high-resolution scanner used. 3 mm axial sections have been obtained, post intravenous injection 60 cc [id number] 2-D sagittal, coronal reconstructions obtained. Low dose protocols were performed. One or more of the following dose reduction techniques were used; automated exposure control, adjustment of the mA and/or KV according to patient size, use of iterative reconstruction technique. Findings: No focal liver or splenic lesions No gallstones No pancreatic or adrenal mass No renal or ureteral calculi, no hydronephrosis Aorta normal size 8mm fat-containing umbilical hernia Absent appendix No bowel obstruction Negative for pneumoperitoneum No diverticulitis Urinary bladder wall thickening up to 4 mm Mild thickening the rectal wall Transverse prostate dimension 4.7 cm IMPRESSION: Absent appendix Negative for pneumoperitoneum No bowel obstruction Mild cystitis pattern Mild thickening of the rectal wall, clinical correlation advised, differential would include proctitis
[2025-02-19 18:32] LABS: Basophils % (Auto) 0 % (0-2.5); Eosinophils # (Auto) 0.1 Thou/mm3 (0.0-0.5); Eosinophils % (Auto) 1 % (0-10); Hematocrit 30.7 % (41.0-53.0); Immature Granulocytes % (Auto) 0 % (0-0); Immature Granulocytes Auto 0.02 Thou/mm3 (0.00-0.00); Lymphocytes # (Auto) 1.9 Thou/mm3 (1.0-4.8); Lymphocytes % (Auto) 24 % (10-50); Mean Corpuscular HGB Conc 35.8 g/dl (31.0-37.0); Mean Corpuscular Hemoglobin 30.7 pg (25.0-35.0); Mean Corpuscular Volume 86 fL (80-100); Monocytes # (Auto) 0.5 Thou/mm3 (0.0-0.8); Monocytes % (Auto) 6 % (0-12); Neutrophils # (Auto) 5.5 Thou/mm3 (1.8-7.7); Neutrophils % (Auto) 69 % (37-80); Nucleated Red Blood Cell % 0 /100 WBC (0); Platelet Count 214 Thou/mm3 (140-440); RDW Standard Deviation 39.7 fL (35.1-43.9); Red Blood Count 3.58 Miln/mm3 (4.50-5.90)
--- NOTE | 2025-02-19 20:27 | ESPR_ITS ---
Documentation for date of: 02/19/25 Subjective Subjective Brief History: This 49-year-old gentleman had colonoscopy and polypectomy with hot snare. That was done about 24 hours before the admission. 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 He did well with the polypectomy there was no bleeding for several hours after that. Subsequently he developed some rectal bleeding he was seen in the emergency room and then he was admitted to the hospital for further management. He is brought in for colonoscopy and control of the bleeding. The risk benefits and alternatives were discussed with the patient and informed consent is obtained for colonoscopy and control of bleeding. February 19 2025. This patient had endoscopic control of bleeding from the polypectomy site yesterday along with Dr. Carias patient is in the ICU and he has's reduced amount of bleeding. He does have liver enzymes elevated and is possible that his Plavix is still circulating through his system and is affecting the bleeding parameters. His hemoglobin and hematocrit are stable he still has small amount of blood clots and he is complaining of abdominal pain but he had that even before colonoscopy as chronic complaint of pain in the right side of the abdomen. He has a history of appendectomy. His vital signs are normal. His blood pressure is elevated and will have to restart his blood pressure medications. Reviewed and trying to transfer him to interventional radiologist in either in the [place] or any other location and I been talking to the transfer nurses in the [facility] as well as the [facility] in [place]. The interventional radiologist in [facility] said that he should have a CT scan of the abdomen and pelvis with contrast and he should have a red blood cell bleeding scan and after that he will consider excepting the patient so these were ordered. The CAT scan was essentially normal no evidence of perforation or any other inflammatory condition he does have some edema of the rectal region is consistent with the injection of saline with epinephrine during the procedure and is not unusual. The bleeding scan was reviewed by Dr. Aals after 70 minutes there was no evidence of ongoing bleeding and pooling in the rectum. At this time in the evening patient has received 2 units of platelets fresh frozen plasma and 2 units of packed cell considering that he is still having effect of Plavix and the platelet agglutination and therefore we will continue the supportive treatment as we are not able to transfer the patient out. Clinically he seemed to be having a reduced bleeding. All this was discussed in great detail with the patient's niece who is also a certified court/medical interpreter in [facility]. The patient is somewhat anxious not able to understand [place] and therefore it is nice to have a family member who understands the issues and be able to complicate them to the patient. Currently the plan is to provide supportive care continue with the serial H&H and control the blood pressure overnight in the ICU. I have seen this patient during the day for about 4 times. Exam Vital Signs Temp Pulse Resp BP Pulse Ox O2 Del Method O2 Flow Rate 97.4 F 72 18 140/96 H 100 Room Air 2 02/19/25 15:21 02/19/25 18:00 02/19/25 18:00 02/19/25 18:34 02/19/25 18:00 02/19/25 15:21 02/19/25 09:18 Narrative Exam The cardiopulmonary examination is normal patient is in ICU bed 252. The abdomen is soft and nontender nondistended. I did a rectal examination in the middle of the day and it showed that there was no blood on my finger. He does have bowel movements in the toilet bowl which shows a small amount of adherent blood. Is likely old blood passing through at this time. Extremity examinations are normal. Results Results: Laboratory Laboratory results: results reviewed Results: Imaging CT scan - abdomen: report reviewed and image reviewed CT scan - pelvis: report reviewed and image reviewed Additional studies: RBC bleeding scan reviewed images and the report. Assessment & Plan Diagnosis (1) Status post colonoscopy with polypectomy: Status: Acute (2) Rectal bleeding: Status: Acute Plan Continue monitoring the patient H&H continue to give more platelets to counteract the effect of Plavix and monitor the patient's vital signs possible transfer to [place] for IR if needed if the bleeding is stopped and that he may not require angiography and embolization procedure. Again all this was discussed with the family member and explained to her who is also a certified court/medical interpreter in one of the clinics in [place]. Procedures Procedures Colonoscopy with control of rectal bleeding with endoclips 02/18/2025 Injection of epinephrine Use of Endo clot with the powder Use of argon beam graves registration specialist Using gold probe graves registration specialist Intraoperative consultation with Dr. Carias.
--- NOTE | 2025-02-19 21:04 | PC.NURSE ---
Receive a call from [facility] and stated that pt has been denied because they did not saw the source of bleeding.
[2025-02-19 22:22] LABS: Hematocrit 29.1 % (41.0-53.0); Hemoglobin 10.4 g/dL (13.5-16.0)
[2025-02-19] MEDS: hydrALAZINE INJ 20 MG/ML VIAL 10 MG IV (22:59)
[2025-02-20] VITALS (22 sets, daily range): BP systolic 125–163; BP diastolic 85–113; PULSE 62–91; RESP 7–100; TEMP 36.5–36.7; O2SAT 95–100; BMI 27.6
[2025-02-20] MEDS: hydrALAZINE INJ 20 MG/ML VIAL 10 MG IV ×3 (02:09→19:23)
[2025-02-20 02:30] LABS: Hematocrit 28.3 % (41.0-53.0); Hemoglobin 10.3 g/dL (13.5-16.0)
[2025-02-20] MEDS: RINGERS LACTATED 1000 ML 1,000 ML 125 ML IV (02:38)
[2025-02-20 07:03] LABS: Basophils % (Auto) 0 % (0-2.5); Eosinophils # (Auto) 0.1 Thou/mm3 (0.0-0.5); Eosinophils % (Auto) 1 % (0-10); Hematocrit 30.7 % (41.0-53.0); Hemoglobin 10.9 g/dL (13.5-16.0); Immature Granulocytes % (Auto) 0 % (0-0); Immature Granulocytes Auto 0.01 Thou/mm3 (0.00-0.00); Lymphocytes # (Auto) 1.7 Thou/mm3 (1.0-4.8); Lymphocytes % (Auto) 25 % (10-50); Mean Corpuscular HGB Conc 35.5 g/dl (31.0-37.0); Mean Corpuscular Hemoglobin 30.4 pg (25.0-35.0); Mean Corpuscular Volume 86 fL (80-100); Monocytes # (Auto) 0.5 Thou/mm3 (0.0-0.8); Monocytes % (Auto) 7 % (0-12); Neutrophils # (Auto) 4.8 Thou/mm3 (1.8-7.7); Neutrophils % (Auto) 67 % (37-80); Nucleated Red Blood Cell % 0 /100 WBC (0); Platelet Count 230 Thou/mm3 (140-440); RDW Standard Deviation 39.8 fL (35.1-43.9); Red Blood Count 3.59 Miln/mm3 (4.50-5.90); White Blood Count 7.1 Thou/mm3 (3.8-10.6)
[2025-02-20 07:29] LABS: Alanine Aminotransferase 12 U/L (10-49); Albumin, Serum 3.8 gm/dL (3.5-5.0); Albumin/Globulin Ratio 1.7 (1.2-2.2); Alkaline Phosphatase 70 U/L (46-116); Anion Gap 7 (7-16); Aspartate Amino Transferase 12 U/L (0-34); BUN/Creatinine Ratio 11 Ratio (12-20); Bilirubin,Total 0.9 mg/dL (0.3-1.2); Blood Urea Nitrogen 8 mg/dL (9-23); Calcium 8.9 mg/dL (8.3-10.6); Calcium (Corrected) 9.1 mg/dL (8.5-10.1); Chloride 105 mMol/L (98-107); Creatinine (Component) 0.7 mg/dL (0.6-1.3); Estimated Creatinine Clearance 142.4 mL/min (>60); Globulin 2.2 gm/dL (2.3-3.5); Glucose 191 mg/dL (74-106); Osmolality,Calculated 284 (275-295); Potassium 3.7 mMol/L (3.4-5.1); Sodium 141 mMol/L (136-145); eGFR > 60 See Note
--- NOTE | 2025-02-20 08:18 | PC.CC ---
Addendum entered by Arie Woodward RN 02/20/25 10:07: 0954-Received call from Dr. Katz, he is cancelling transfer at this time as patient is stable and is no longer bleeding. Called [facility], [facility], and [facility] to inform them that the transfer has been cancelled at this time. Addendum entered by Arie Woodward RN 02/20/25 09:59: 0925-Received call from Pancho at [facility], he provided Auth# [id number] and requested medical records be faxed to [phone], auth has been placed in Urgent status, he states this could still have a 72 hour turn around. Addendum entered by Arie Woodward RN 02/20/25 09:17: 0915- Call to Dr. Katz, provided him with information provided by [facility] regarding o/p IR services, he stated he was in a procedure at this time but would call me back to [facility] for IR department at [facility] so that he may discuss the case with them and coordinate o/p IR service. Addendum entered by Arie Woodward RN 02/20/25 09:14: 0900-Received call from ROBERT Patel RN at [facility], she states that IR services can be provided as an outpatient service and do not require transfer. She provided phone number for IR services [phone] so that we may have our provider communicate with their IR MD and coordinate scheduling for IR embolization. If accepted and their is room on their schedule we can coordinate transportation over for procedure. Addendum entered by Arie Woodward RN 02/20/25 08:35: 0833- Phone call to [facility] at [phone], no answer as they are not open at this time, option to leave a voicemail only. I left a detailed message and my contact information, will await a response from them to request authorization for transfer. Original Note: 817- Call to [facility] to request insurance authorization for transfer, spoke with new accounts banking representative Felicitas and informed her of the request from [facility] for authorization prior to transfer, provided her with Tax ID and NPI. Felicitas verified patient's insurance coverage and plan subscription, patient is assigned to [facility] [phone]. She has requested that we contact them to obtain authorization for treatment.
--- NOTE | 2025-02-20 08:30 | PD.SURPROG ---
Documentation for date of: 02/20/25 Subjective Subjective Brief History: This 49-year-old gentleman had colonoscopy and polypectomy with hot snare. That was done about 24 hours before the admission. He has a history of coronary intervention and he has been on Plavix and aspirin that upon his torch burner advised stopped about 5 days prior to the procedure. He did well with the polypectomy there was no bleeding for several hours after that. Subsequently he developed some rectal bleeding he was seen in the emergency room and then he was admitted to the hospital for further management. He is brought in for colonoscopy and control of the bleeding. The risk benefits and alternatives were discussed with the patient and informed consent is obtained for colonoscopy and control of bleeding. February 19 2025. This patient had endoscopic control of bleeding from the polypectomy site yesterday along with Dr. Carias patient is in the ICU and he has's reduced amount of bleeding. He does have liver enzymes elevated and is possible that his Plavix is still circulating through his system and is affecting the bleeding parameters. His hemoglobin and hematocrit are stable he still has small amount of blood clots and he is complaining of abdominal pain but he had that even before colonoscopy as chronic complaint of pain in the right side of the abdomen. He has a history of appendectomy. His vital signs are normal. His blood pressure is elevated and will have to restart his blood pressure medications. Reviewed and trying to transfer him to interventional radiologist in either in the [place] or any other location and I been talking to the transfer nurses in the [facility] as well as the [facility] in [place]. The interventional radiologist in [facility] said that he should have a CT scan of the abdomen and pelvis with contrast and he should have a red blood cell bleeding scan and after that he will consider excepting the patient so these were ordered. The CAT scan was essentially normal no evidence of perforation or any other inflammatory condition he does have some edema of the rectal region is consistent with the injection of saline with epinephrine during the procedure and is not unusual. The bleeding scan was reviewed by Dr. Alas after 70 minutes there was no evidence of ongoing bleeding and pooling in the rectum. At this time in the evening patient has received 2 units of platelets fresh frozen plasma and 2 units of packed cell considering that he is still having effect of Plavix and the platelet agglutination and therefore we will continue the supportive treatment as we are not able to transfer the patient out. Clinically he seemed to be having a reduced bleeding. All this was discussed in great detail with the patient's niece who is also a neuropsychology medical consultant in [place] [facility]. The patient is somewhat anxious not able to understand Polish and therefore it is nice to have a family member who understands the issues and be able to complicate them to the patient. Currently the plan is to provide supportive care continue with the serial H&H and control the blood pressure overnight in the ICU. I have seen this patient during the day for about 4 times. February 20, 2025. Overnight the patient required hydralazine to control his blood pressure. He has had no bowel movements with bleeding or blood clots. complaint of abdominal pain is somewhat the same that he had for past several months. He is hemoglobin and hematocrits are actually turning upwards now and the trend is more or less the same but not dropping. I will still give 1 more unit of platelets to counteract the effect of lingering Plavix in the circulation. It appears that the patient is turning the corner. Will start him on clear liquid diet and also give him all his blood pressure medications by mouth he is on about 4 oral agents to control his blood pressure. CT scan shows that he has a several areas of vascular calcifications. Exam Vital Signs Temp Pulse Resp BP Pulse Ox O2 Del Method O2 Flow Rate 97.8 F 78 10 L 140/89 H 100 Room Air 3 02/20/25 04:00 02/20/25 06:37 02/20/25 06:37 02/20/25 06:37 02/20/25 06:37 02/19/25 23:22 02/20/25 03:07 Narrative Exam The patient is in ICU bed and has no complaints. Abdomen is soft and nontender. There is no rectal bleeding. Cardiopulmonary exam is normal. HTN is controlled now with supplimental hydralazine. Results Results: Laboratory Laboratory results: results reviewed Assessment & Plan Diagnosis (1) Status post colonoscopy with polypectomy: Status: Acute (2) Status post colonoscopy: Status: Acute (3) Rectal bleeding: Status: Acute Plan Keep patient on liquid diet. Bed rest Discharge planning for tomorrow. Home management of HTN and diabetes. Stay off Plavix for 1 more week. Procedures Procedure Date 02/18/25 Procedures Colonoscopy with control of rectal bleeding with endoclips 02/18/2025 Injection of epinephrine Use of Endo clot with the powder Use of argon beam gas appliance installer Using gold probe gas appliance installer Intraoperative consultation with Dr. Carias.
[2025-02-20] MEDS: INSULIN GLARGINE (Lantus) 5 UNIT/0.05 ML (PER 5 UNITS) 8 UNIT SC (09:30)
--- NOTE | 2025-02-20 09:33 | CHAP ---
Patient expressed gratitude for visit and prayer
[2025-02-20] MEDS: SODIUM CHLORIDE 0.9% 1000 ML 1,000 ML 40 ML IV (10:11)
[2025-02-20] MEDS: ACETAMINOPHEN 325 MG TABLET 650 MG PO (10:11)
[2025-02-20] MEDS: ONDANSETRON INJ 2 MG/ML INJ 2 ML 4 MG IV (10:11)
[2025-02-20 10:41] LABS: Hematocrit 30.6 % (41.0-53.0)
[2025-02-20 14:31] LABS: Hematocrit 30.8 % (41.0-53.0); Hemoglobin 11.2 g/dL (13.5-16.0)
[2025-02-21] VITALS (8 sets, daily range): BP systolic 130–146; BP diastolic 87–100; PULSE 61–92; RESP 11–98; TEMP 36.2–36.8; O2SAT 93–98; BMI 27.6
[2025-02-21 06:05] LABS: Alanine Aminotransferase 12 U/L (10-49); Albumin, Serum 3.8 gm/dL (3.5-5.0); Albumin/Globulin Ratio 1.7 (1.2-2.2); Alkaline Phosphatase 68 U/L (46-116); Anion Gap 5 (7-16); Aspartate Amino Transferase 17 U/L (0-34); BUN/Creatinine Ratio 6 Ratio (12-20); Bilirubin,Total 0.7 mg/dL (0.3-1.2); Blood Urea Nitrogen 5 mg/dL (9-23); Calcium 9.1 mg/dL (8.3-10.6); Calcium (Corrected) 9.3 mg/dL (8.5-10.1); Carbon Dioxide 29.7 mMol/L (20.0-31.0); Chloride 107 mMol/L (98-107); Creatinine (Component) 0.8 mg/dL (0.6-1.3); Estimated Creatinine Clearance 124.6 mL/min (>60); Globulin 2.3 gm/dL (2.3-3.5); Glucose 195 mg/dL (74-106); Osmolality,Calculated 285 (275-295); Sodium 142 mMol/L (136-145); Total Protein 6.1 gm/dL (5.7-8.2); eGFR > 60 See Note
[2025-02-21] MEDS: SODIUM CHLORIDE 0.9% 1000 ML 1,000 ML 40 ML IV (06:20)
[2025-02-21] MEDS: INSULIN GLARGINE (Lantus) 5 UNIT/0.05 ML (PER 5 UNITS) 8 UNIT SC (08:42)
[2025-02-21 13:22] LABS: Basophils % (Auto) 0 % (0-2.5); Eosinophils # (Auto) 0.1 Thou/mm3 (0.0-0.5); Eosinophils % (Auto) 2 % (0-10); Hematocrit 29.9 % (41.0-53.0); Hemoglobin 10.9 g/dL (13.5-16.0); Immature Granulocytes % (Auto) 0 % (0-0); Immature Granulocytes Auto 0.02 Thou/mm3 (0.00-0.00); Lymphocytes # (Auto) 1.8 Thou/mm3 (1.0-4.8); Lymphocytes % (Auto) 30 % (10-50); Mean Corpuscular HGB Conc 36.5 g/dl (31.0-37.0); Mean Corpuscular Hemoglobin 30.8 pg (25.0-35.0); Mean Corpuscular Volume 85 fL (80-100); Monocytes # (Auto) 0.4 Thou/mm3 (0.0-0.8); Monocytes % (Auto) 7 % (0-12); Neutrophils # (Auto) 3.6 Thou/mm3 (1.8-7.7); Neutrophils % (Auto) 61 % (37-80); Nucleated Red Blood Cell % 0 /100 WBC (0); Platelet Count 249 Thou/mm3 (140-440); RDW Standard Deviation 39.2 fL (35.1-43.9); Red Blood Count 3.54 Miln/mm3 (4.50-5.90); White Blood Count 5.9 Thou/mm3 (3.8-10.6)
--- NOTE | 2025-02-21 15:08 | PD.SURPROG ---
Documentation for date of: 02/21/25 Subjective Subjective Brief History: This 49-year-old gentleman had colonoscopy and polypectomy with hot snare. That was done about 24 hours before the admission. He has a history of coronary intervention and he has been on Plavix and aspirin that upon his general medical practitioner advised stopped about 5 days prior to the procedure. He did well with the polypectomy there was no bleeding for several hours after that. Subsequently he developed some rectal bleeding he was seen in the emergency room and then he was admitted to the hospital for further management. He is brought in for colonoscopy and control of the bleeding. The risk benefits and alternatives were discussed with the patient and informed consent is obtained for colonoscopy and control of bleeding. February 19 2025. This patient had endoscopic control of bleeding from the polypectomy site yesterday along with Dr. Carias patient is in the ICU and he has's reduced amount of bleeding. He does have liver enzymes elevated and is possible that his Plavix is still circulating through his system and is affecting the bleeding parameters. His hemoglobin and hematocrit are stable he still has small amount of blood clots and he is complaining of abdominal pain but he had that even before colonoscopy as chronic complaint of pain in the right side of the abdomen. He has a history of appendectomy. His vital signs are normal. His blood pressure is elevated and will have to restart his blood pressure medications. Reviewed and trying to transfer him to interventional radiologist in either in the [place] or any other location and I been talking to the transfer nurses in the [facility] as well as the [facility] in [place]. The interventional radiologist in [facility] said that he should have a CT scan of the abdomen and pelvis with contrast and he should have a red blood cell bleeding scan and after that he will consider excepting the patient so these were ordered. The CAT scan was essentially normal no evidence of perforation or any other inflammatory condition he does have some edema of the rectal region is consistent with the injection of saline with epinephrine during the procedure and is not unusual. The bleeding scan was reviewed by Dr. Alas after 70 minutes there was no evidence of ongoing bleeding and pooling in the rectum. At this time in the evening patient has received 2 units of platelets fresh frozen plasma and 2 units of packed cell considering that he is still having effect of Plavix and the platelet agglutination and therefore we will continue the supportive treatment as we are not able to transfer the patient out. Clinically he seemed to be having a reduced bleeding. All this was discussed in great detail with the patient's niece who is also a medical office administrator in [place] [facility]. The patient is somewhat anxious not able to understand Haitian and therefore it is nice to have a family member who understands the issues and be able to complicate them to the patient. Currently the plan is to provide supportive care continue with the serial H&H and control the blood pressure overnight in the ICU. I have seen this patient during the day for about 4 times. February 20, 2025. Overnight the patient required hydralazine to control his blood pressure. He has had no bowel movements with bleeding or blood clots. complaint of abdominal pain is somewhat the same that he had for past several months. He is hemoglobin and hematocrits are actually turning upwards now and the trend is more or less the same but not dropping. I will still give 1 more unit of platelets to counteract the effect of lingering Plavix in the circulation. It appears that the patient is turning the corner. Will start him on clear liquid diet and also give him all his blood pressure medications by mouth he is on about 4 oral agents to control his blood pressure. CT scan shows that he has a several areas of vascular calcifications. February 21, 2025. Patient is not having any rectal bleeding he is ambulating in the hallways is tolerating oral intake well he had small bowel movement without any gross bleeding. This patient had bleeding because of the lingering metabolites of Plavix now that is out of his system he is not bleeding. He will be kept off of Plavix for another week or and then he may resume his Plavix. That likely should be reduced in dose but his general medical practitioner will decide that. He will be discharged home follow-up in the office in 2 weeks Exam Vital Signs Temp Pulse Resp BP Pulse Ox O2 Del Method O2 Flow Rate 97.3 F 80 18 146/97 H 97 Room Air 3 02/21/25 12:02/21/25 12:02/21/25 12:02/21/25 12:02/21/25 12:02/21/25 12:02/21/25 12:00 Narrative Exam Abdomen is soft and nontender bowel tones are normal. Extremities are unremarkable cardiopulmonary exam is normal. Results Results: Laboratory Laboratory results: results reviewed Assessment & Plan Diagnosis (1) Status post colonoscopy with polypectomy: Status: Acute (2) Rectal bleeding: Status: Acute Plan Discharge patient home stay on liquid semisolid diet follow-up in the office in 2 weeks. Report any recurrent bleeding to Dr. Katz. Stay off the anticoagulants for another week. Procedures Procedure Date 02/18/25 Procedures Colonoscopy with control of rectal bleeding with endoclips 02/18/2025 Injection of epinephrine Use of Endo clot with the powder Use of argon beam historic clothing and costume maker Using gold probe historic clothing and costume maker Intraoperative consultation with Dr. Carias.
--- NOTE | 2025-02-21 15:11 | ESDS_ITS ---
Planned Discharge Date 02/21/25 DS: Providers Provider Date of admission: 02/18/25 21:06 Primary care physician: Vladimir Marcus MD Admitting Provider: Vamshi Katz MD Attending Provider on Admission: Vamshi Katz MD Consults: 02/19/25 07:44 Consult to Seasonal Greenery Bundler Stat Comment: Consulting Provider: Shea Joshi Attending Provider on DC: Vamshi Katz MD Discharging Provider: Vamshi Katz MD Diagnosis Discharge Diagnosis (1) Status post colonoscopy with polypectomy: Status: Acute (2) Rectal bleeding: Status: Acute (3) Tubulovillous adenoma polyp of rectum: Status: Acute Problem List Completed Was Problem List Reviewed/Reconciled?: Yes Hospital Course Brief History: This 49-year-old gentleman had colonoscopy and polypectomy with hot snare. That was done about 24 hours before the admission. He has a history of coronary intervention and he has been on Plavix and aspirin that upon his roller skate repairer advised stopped about 5 days prior to the procedure. He did well with the polypectomy there was no bleeding for several hours after that. Subsequently he developed some rectal bleeding he was seen in the emergency room and then he was admitted to the hospital for further management. He is brought in for colono scopy and control of the bleeding. The risk benefits and alternatives were discussed with the patient and informed consent is obtained for colonoscopy and control of bleeding. February 19 2025. This patient had endoscopic control of bleeding from the polypectomy site yesterday along with Dr. Carias patient is in the ICU and he has's reduced amount of bleeding. He does have liver enzymes elevated and is possible that his Plavix is still circulating through his system and is affecting the bleeding parameters. His hemoglobin and hematocrit are stable he still has small amount of blood clots and he is complaining of abdominal pain but he had that even before colonoscopy as chronic complaint of pain in the right side of the abdomen. He has a history of appendectomy. His vital signs are normal. His blood pressure is elevated and will have to restart his blood pressure medications. Reviewed and trying to transfer him to interventional radiologist in either in the [place] or any other location and I been talking to the transfer nurses in the [facility] as well as the [facility] in [place]. The interventional radiologist in [facility] said that he should have a CT scan of the abdomen and pelvis with contrast and he should have a red blood cell bleeding scan and after that he will consider excepting the patient so these were ordered. The CAT scan was essentially normal no evidence of perforation or any other inflammatory condition he does have some edema of the rectal region is consistent with the injection of saline with epinephrine during the procedure and is not unusual. The bleeding scan was reviewed by Dr. Alas after 70 minutes there was no evidence of ongoing bleeding and pooling in the rectum. At this time in the evening patient has received 2 units of platelets fresh frozen plasma and 2 units of packed cell considering that he is still having effect of Plavix and the platelet agglutination and therefore we will continue the supportive treatment as we are not able to transfer the patient out. Clinically he seemed to be having a reduced bleeding. All this was discussed in great detail with the patient's niece who is also a medical malpractice paralegal in [place] [facility]. The patient is somewhat anxious not able to understand Kazakh and therefore it is nice to have a family member who understands the issues and be able to complicate them to the patient. Currently the plan is to provide supportive care continue with the serial H&H and control the blood pressure overnight in the ICU. I have seen this patient during the day for about 4 times. February 20, 2025. Overnight the patient required hydralazine to control his blood pressure. He has had no bowel movements with bleeding or blood clots. complai nt of abdominal pain is somewhat the same that he had for past several months. He is hemoglobin and hematocrits are actually turning upwards now and the trend is more or less the same but not dropping. I will still give 1 more unit of platelets to counteract the effect of lingering Plavix in the circulation. It appears that the patient is turning the corner. Will start him on clear liquid diet and also give him all his blood pressure medications by mouth he is on about 4 oral agents to control his blood pressure. CT scan shows that he has a several areas of vascular calcifications. February 21, 2025. Patient is not having any rectal bleeding he is ambulating in the hallways is tolerating oral intake well he had small bowel movement without any gross bleeding. This patient had bleeding because of the lingering metabolites of Plavix now that is out of his system he is not bleeding. He will be kept off of Plavix for another week or and then he may resume his Plavix. That likely should be reduced in dose but his roller skate repairer will decide that. He will be discharged home follow-up in the office in 2 weeks This patient had a colonoscopy and polypectomy done on 02/17/2025. Is a Plavix and aspirin was held for about 5 days on recommendation of his roller skate repairer. Patient had a tubulo villous adenoma removed from the rectum with hot snare. He was doing fine until about 18 hours later he started having rectal bleeding he was seen in the emergency room and admitted next day to the hospital. He was found to have bleeding from the polypectomy site this was controlled with clips and gold probe and argon laser treatment. There was a question whether we needs to have a interventional radiologist to embolize the vessel. It was also treated with 2 units of packed cells as well as 2 units of platelets gradually his bleeding stopped after the platelets very replenished and observation in ICU was carried out for a period of 2 days. Post transfer to the floor he has been ambulating well he has no symptoms. He has no rectal bleeding and is tolerating oral intake well. In final determination his bleeding partly was because of the Plavix because he may have liver metabolic issues with the diabetes and other conditions he may still have lingering blood level of Plavix that interfered with the postop coagulation and that is why he had bleeding when he is platelet's were replenished and Plavix was withheld for longer period of time and then gradually his bleeding subsided from the polypectomy site. He will have to have the roller skate repairer reconsider the dose of his Plavix based on his liver function test. Exam Vital Signs Temp Pulse Resp BP Pulse Ox O2 Del Method O2 Flow Rate 97.3 F 80 18 146/97 H 97 Room Air 3 02/21/25 12:00 02/21/25 12:00 02/21/25 12:00 02/21/25 12:00 02/21/25 12:00 02/21/25 12:02/21/25 12:00 Narrative Exam The cardiopulmonary examination is normal patient is ambulating in the hallways tolerating diet well he has no rectal bleeding and he does not have any abdominal pain. Discharge Plan Plan Patient Disposition: HOME (Self Care) Disposition Comment: Follow-up in the office in 2 weeks Prescriptions/Referrals Prescriptions/Med Rec: New ferrous sulfate 325 mg (65 mg iron) tablet 325 mg PO BID 30 Days Qty: 60 3RF Continued spironolactone 25 mg tablet 25 mg PO QDAY Patient Comments: TAKE 1 TABLET BY MOUTH ONCE DAILY FOR 90 DAYS atorvastatin 80 mg tablet 80 mg PO QDAY amlodipine 10 mg tablet 10 mg PO QDAY Patient Comments: TAKE 1 TABLET BY MOUTH ONCE DAILY omeprazole 20 mg capsule,delayed release(DR/EC) 20 mg PO QDAY Patient Comments: TAKE 1 CAPSULE BY MOUTH ONCE DAILY BEFORE A MEAL hydrochlorothiazide 25 mg tablet 25 mg PO QDAY losartan 100 mg tablet 100 mg PO DAILY Patient Comments: TAKE 1 TABLET BY MOUTH ONCE DAILY insulin glargine-yfgn [Semglee(insulin glarg-yfgn)Pen] 100 unit/mL (3 mL) insulin pen 15 unit SUBCUT QDAY Patient Comments: INJECT 25 UNITS SUBCUTANEOUSLY ONCE DAILY nitroglycerin 0.4 mg tablet, sublingual 0.4 mg BUCCAL UD PRN (Reason: chest pain) Patient Comments: DISSOLVE ONE TABLET UNDER THE TONGUE EVERY 5 MINUTES NEEDED FOR CHEST PAIN. DO NOT EXCEED A TOTAL OF 3 DOSES IN 15 MINUTES IF CHEST PAIN PERSISTS DIAL 911 montelukast 10 mg tablet 10 mg PO QDAY Patient Comments: TAKE 1 TABLET BY MOUTH IN THE EVENING Held clopidogrel 75 mg tablet 75 mg PO QDAY Hold Instructions: Resume on 02/28/25. Patient Comments: TAKE 1 TABLET BY MOUTH ONCE DAILY aspirin [Adult Aspirin Regimen] 81 mg tablet,delayed release (DR/EC) 81 mg PO QDAY Hold Instructions: Resume on 02/28/25. Discontinued aspirin 81 mg tablet,delayed release (DR/EC) 81 mg PO QDAY Referrals: Vladimir Marcus MD [Primary Care Provider] - Patient/Caregiver Discharge Instructions Print Language: Trinidadian Stand Alone Forms: Laura Award Info., Patient Portal Info Letter Discharge Order Discharge Orders: Discharge (Routine); Ordered 02/21/25 Ordered By: Vamshi Katz Results Results: Laboratory Laboratory Narrative: He is hemoglobin and hematocrit has been stable at about 30 hematocrit for past 5 checks over a period of 36 hours. He will be placed on oral iron replacement therapy as prescribed. Laboratory results: results reviewed Procedures Procedure Date 02/18/25 Procedures Colonoscopy with control of rectal bleeding with endoclips 02/18/2025 Injection of epinephrine Use of Endo clot with the powder Use of argon beam applications analyst Using gold probe applications analyst Intraoperative consultation with Dr. Carias.
== END 2025-02-21 15:50 | disposition home or self-care (01) | DRG 810 ==
LOC: SERX 14:39 → SERHOLD 14:51 → S2SX 02-19 06:58 → S3NX 02-21 15:05 → SERHOLD 02-24 07:31 → S3NX 02-24 07:32 → S2SX 02-24 07:32
PROVIDERS: Student in an Organized Health Care Education/Training Program; Admitting Provider Specialist; Emergency Provider Emergency Medicine; PCP Family Medicine; Visit Provider Specialist
PROC: 0DJD8ZZ Inspection of Lower Intestinal Tract, Via Natural or Artificial Opening Endoscopic (ICD-10-PCS; CPT 45378; principal; 2025-02-18 16:00)
DX: K91.840 Postprocedural hemorrhage of a digestive system organ or structure following a digestive system procedure (principal); E11.9 Type 2 diabetes mellitus without complications; I10 Essential (primary) hypertension; Y83.8 Other surgical procedures as the cause of abnormal reaction of the patient, or of later complication, without mention of misadventure at the time of the procedure; D62 Acute posthemorrhagic anemia; I25.10 Atherosclerotic heart disease of native coronary artery without angina pectoris; E78.5 Hyperlipidemia, unspecified; D12.8 Benign neoplasm of rectum; K92.2 Gastrointestinal hemorrhage, unspecified; K62.1 Rectal polyp; Z79.02 Long term (current) use of antithrombotics/antiplatelets; Z87.891 Personal history of nicotine dependence; Z90.49 Acquired absence of other specified parts of digestive tract; Z79.899 Other long term (current) drug therapy; Z88.0 Allergy status to penicillin; Z88.8 Allergy status to other drugs, medicaments and biological substances
CPT/HCPCS: 36415; 74177; 78278; 80053; 83036; 85014; 85018; 85025; 85610; 85730; 86850; 86900; 86901; 86923; 86927; 86965; 87081; 99285; A4217; A4641; A4649; A9560; G0378; J0171; J0360; J1200; J1815; J2250; J2405; J3010; J7030; J7120; P9016; P9035; P9060; Q9967; A9270